=== PATIENT | male | born 1995 | race Caucasian/White ===

== ENCOUNTER 2016-09-21 18:55 | Emergency (ER) | payer SELFPAY ==
[2016-09-21] MEDS: cefTRIAXone SODIUM 1 GM in 0.9 % SODIUM CHLORIDE 50 ML IV SCH (18:55)
[2016-09-21] MEDS: LACTATED RINGERS 1,000 ML IV ONE (18:55)
[2016-09-21] MEDS: 0.9 % SODIUM CHLORIDE 1,000 ML IV ONE (18:55)
[2016-09-21] MEDS: DIPH,PERTUSS(ACELL),TET VAC/PF 0.5 ML DISP.SYRIN IM ONE (18:55)
[2016-09-21] MEDS ORDERED: HYDROmorphone HCL/PF 2 MG/ML DISP.SYRIN ONE (18:57)
[2016-09-21] MEDS ORDERED: Lidocaine 1% 5ml(IM or SUTURE)(PAIN CLINIC) ONE (18:58)
[2016-09-21] MEDS ORDERED: cefTRIAXone SODIUM 1 GM VIAL ONE (18:58)
[2016-09-21] MEDS ORDERED: ONDANSETRON HCL/PF 4 MG/ 2ML VIAL ONE (18:59)
[2016-09-21] MEDS: HYDROmorphone HCL/PF 2 MG/ML DISP.SYRIN IVP ONE (18:59)
[2016-09-21] MEDS: ONDANSETRON HCL/PF 4 MG/ 2ML VIAL IVP ONE (19:00)
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
[2016-09-21] MEDS ORDERED: 0.9 % SODIUM CHLORIDE 1,000 ML IV ONE (19:31)
[2016-09-21] MEDS ORDERED: LACTATED RINGERS 1,000 ML IV ONE (19:32)
[2016-09-21 20:34] VITALS: BP 120/58
== END 2016-09-21 19:10 | disposition short-term general hospital (02) ==
LOC: ED 18:55 → EDBD 18:55 → EDUNIT# 18:55 → ED 19:10
DX: S82.92 Unspecified fracture of left lower leg (principal); X58.XXXA Exposure to other specified factors, initial encounter; Y93.9 Activity, unspecified; Y99.9 Unspecified external cause status
CPT/HCPCS: 90715; J0696; J1170; J2405; J7030; J7120; 90471; 96361; 96365; 96374; 99284; S1016